=== PATIENT | female | born 1970 | race African-American/Black ===

== ENCOUNTER 2018-09-14 10:30 | Emergency (ER) | payer BC ==
[~2018-09-14] VITALS: Ht 165.1 cm; Wt 73.5 kg
[2018-09-14 10:33] VITALS: BP 108/73
--- NOTE | 2018-09-14 10:43 | NUR ---
PATIENT PRESENTS TO ED WITH ambulatory with steady gait, denies injury/trauma states was at the gym yesterday when felt a sharp pain to left upper back inferior to scapula area and again today during [employer] class denies dysuria DENIES N/V/D; SKIN IS PINK/WARM/DRY; AAOX4 WITH EVEN AND STEADY GAIT; LUNGS CLEAR BL; HR EVEN AND REGULAR; PT DENIES ANY FEVER, CP, SOB, OR COUGH AT THIS TIME; PATIENT STATES PAIN OF 8/10 AT THIS TIME; VSS; PATIENT POSITIONED FOR COMFORT; HOB ELEVATED; BEDRAILS UP X2; BED DOWN. ER MD MADE AWARE OF PT STATUS.
[2018-09-14 12:50] VITALS: BP 102/69
--- NOTE | 2018-09-14 12:50 | NUR ---
Patient discharged with v/s stable. Written and verbal after care instructions given and explained. Patient verbalized understanding. Ambulatory with steady gait. All questions addressed prior to discharge. Advised to follow up with PMD.
== END 2018-09-14 12:50 | disposition home or self-care (01) ==
LOC: MED 10:30
DX: S46.812A Strain of other muscles, fascia and tendons at shoulder and upper arm level, left arm, initial encounter (principal); X50.3XXA Overexertion from repetitive movements, initial encounter; Y93.B9 Activity, other involving muscle strengthening exercises; Y92.89 Other specified places as the place of occurrence of the external cause; Y99.8 Other external cause status
CPT/HCPCS: 71046; 99283